=== PATIENT | female | born 1940 | race Caucasian/White ===

== ENCOUNTER → 2017-10-12 14:44 | Outpatient (CLI) | payer MEDICARE, OTHER, SELFPAY | PROVIDERS: Family Provider Family Medicine; PCP Family Medicine; Visit Provider Internal Medicine Pulmonary Disease | DX: I27.21 Secondary pulmonary arterial hypertension (principal) ==

== ENCOUNTER 2018-02-22 11:51 | Emergency (ER) | payer MEDICARE, OTHER, SELFPAY ==
[2018-02-22 12:25] VITALS: BP 98/47; PULSE 67; RESP 24; TEMP 36.9; O2SAT 92
--- NOTE | 2018-02-22 12:30 | PC.NURSE ---
pt used WC to get to restroom, that exertion dropped her sats to 68% on 4l. pt sat on side of bed to recover, pt o2 raised to 5l, pt then slowly come up to 92, pt remains on 5l.
--- NOTE | 2018-02-22 12:59 | ED_ITS ---
HPI - Extremity Problem <ALLY Dominguez - Last Filed: 02/22/18 22:24> General Chief complaint: Extremity Problem,Nontraumatic Stated complaint: Bilateral leg swelling Time Seen by Provider: 02/22/18 12:57 Source: patient Mode of arrival: ambulatory Limitations: no limitations History of Present Illness HPI Narrative: 77-year-old female with history of COPD and CHF here for complaint of cellulitis to bilateral lower extremities not improving. She was recently treated by primary care for cellulitis to her lower extremities and was placed on Augmentin. She has been on Augmentin for the past 3 days she states that the redness to her bilateral lower extremities are on the feet area has worsened over the past couple of days. She denies any fever. She does report having some discomfort to the area of the feet. She denies any trauma to the area. No chest pain. She denies any worsening shortness of breath other than her baseline. Positive p.o. intake. No nausea or vomiting. Related Data Home Medications Medication Instructions Recorded Confirmed albuterol sulfate [ProAir 1 puff INHALATION PRN PRN 02/22/18 02/22/18 RespiClick] ambrisentan [Letairis] 10 mg PO DAILY 02/22/18 02/22/18 amoxicillin-pot clavulanate 1 tab PO BIDX10 02/22/18 02/22/18 furosemide 80 mg PO DAILY 02/22/18 02/22/18 lovastatin 40 mg PO DAILY 02/22/18 02/22/18 mometasone-formoterol [Dulera] 1 puff INHALATION BID 02/22/18 02/22/18 omeprazole 40 mg PO DAILY 02/22/18 02/22/18 oxycodone 5 - 10 mg PO Q6H PRN MDD 3 tabs 02/22/18 02/22/18 oxycodone [OxyContin] 10 mg PO Q8H 02/22/18 02/22/18 potassium chloride 10 meq PO BID 02/22/18 02/22/18 sildenafil (antihypertensive) 20 mg PO TID 02/22/18 02/22/18 spironolactone 25 mg PO DAILY 02/22/18 02/22/18 tiotropium bromide [Spiriva 1 dose INHALATION DAILY 02/22/18 02/22/18 Respimat] trazodone 50 mg PO DAILY 02/22/18 02/22/18 triamcinolone acetonide 1 applic TOPICAL DIRECTED 02/22/18 02/22/18 Previous Rx's Medication Instructions Recorded clindamycin HCl 300 mg PO QID #28 cap 02/22/18 Review of Systems <ALLY Dominguez - Last Filed: 02/22/18 22:24> Constitutional Denies chills, Denies fever(s), Denies lethargy and Denies weakness Eyes Denies change in vision, Denies eye discharge, Denies irritation and Denies loss of vision ENT Ears, Nose, Mouth, and Throat: Denies change in voice, Denies neck pain and Denies sore throat Cardiovascular Denies chest pain, Denies irregular heart rhythm, Denies lightheadedness, Denies palpitations, Denies dyspnea, Denies dyspnea on exertion and Denies orthopnea Respiratory Denies cough, Denies dyspnea, Denies dyspnea on exertion and Denies wheezing Gastrointestinal Gastrointestinal: Denies abdominal pain, Denies change in bowel habits, Denies diarrhea, Denies nausea and Denies vomiting Genitourinary Denies hematuria, Denies flank pain, Denies urinary incontinence and Denies urinary urgency Musculoskeletal Denies neck pain Comments: Redness to her lower extremities Integumentary/Breasts Denies pruritus, Denies erythema, Denies rash and Denies wounds Neurologic Denies confusion, Denies loss of vision and Denies weakness Psychiatric Denies anxiety, Denies confusion, Denies depression, Denies homicidal ideation and Denies suicidal ideation Endocrine Denies palpitations Hematologic/Lymphatic Denies easy bruising Allergic/Immunologic Denies wheezing Exam <ALLY Dominguez - Last Filed: 02/22/18 22:24> Initial Vital Signs Initial Vital Signs: Vital Signs Temperature 98.5 F 02/22/18 12:25 Pulse Rate 67 02/22/18 12:25 Respiratory Rate 24 02/22/18 12:25 Blood Pressure 98/47 L 02/22/18 12:25 Pulse Oximetry 92 02/22/18 12:25 Const General: cooperative and well developed Nutritional Appearance: well nourished Orientation: alert, awake, oriented x3 and not confused HENMT Mouth: oral mucosae normal and moist mucous membranes Eyes Conjunctivae: conjunctivae normal Sclera: sclerae normal Pupils: PERRL EOM: EOM intact bilaterally Resp Effort & Inspection: normal respiratory effort, able to speak in complete sentences, no respiratory distress and no use of accessory muscles Auscultation: no rales, no rhonchi and wheezes Cardio Rate: regular rate Rhythm: regular rhythm Heart Sounds: no click, no gallops, no murmurs and no rubs GI Inspection: non-distended Palpation: soft, no hepatosplenomegaly, No guarding, No pulsatile mass and No tender Auscultation: normal bowel sounds Neuro General: alert, oriented x3, gait normal and no focal motor deficits Speech: speech normal Extrem Other: mild erythema to bilateral feet and radiating into her ankle area. Increased temperature on palpation. Distal sensation is intact. Distal range of motion is intact. Distal cap refill less than 2 sec. No calf swelling Homans sign negative, <Gayla Leal DO - Last Filed: 02/23/18 16:37> Initial Vital Signs Initial Vital Signs: Vital Signs Temperature 98.5 F 02/22/18 12:25 Pulse Rate 67 02/22/18 12:25 Respiratory Rate 24 02/22/18 12:25 Blood Pressure 98/47 L 02/22/18 12:25 Pulse Oximetry 92 02/22/18 12:25 Course <ALLY Dominguez - Last Filed: 02/22/18 22:24> Orders Ordered: ED Orders 02/22/18 13:35 Blood Culture Stat 02/22/18 13:37 B Type Natriuretic Peptide Stat Complete Blood Count AUTO DIFF Stat Comprehensive Metabolic Panel Stat Lactate (Lactic Acid) Stat Procalcitonin Stat Troponin & CK Cardiac Panel Stat Vital Signs - 8 hr 02/22/18 15:31 Pulse Rate 54 L Blood Pressure [Left Arm] 103/37 L Pulse Oximetry 91 <Gayla Leal DO - Last Filed: 02/23/18 16:37> Orders Ordered: ED Orders 02/22/18 13:35 Blood Culture Stat 02/22/18 13:37 B Type Natriuretic Peptide Stat Complete Blood Count AUTO DIFF Stat Comprehensive Metabolic Panel Stat Lactate (Lactic Acid) Stat Procalcitonin Stat Troponin & CK Cardiac Panel Stat Vital Signs - 8 hr 02/22/18 15:31 Pulse Rate 54 L Blood Pressure [Left Arm] 103/37 L Pulse Oximetry 91 MDM - Extremity (Nontraumatic) <ALLY Dominguez - Last Filed: 02/22/18 22:24> Lab Data Result diagrams: 02/22/18 13:37 02/22/18 13:37 Lab Results 02/22/18 02/22/18 02/22/18 Range/Units 13:37 13:37 13:37 WBC 5.2 (4.5-11.0) X10^3/uL RBC 4.24 (4.0-5.2) X10^6/uL Hgb 10.8 L (12.0-16.0) g/dL Hct 33.3 L (36-46) % MCV 78.5 L (80-100) fL MCH 25.6 L (26-34) PG MCHC 32.5 (30-36) % RDW 30.8 H (11.6-14.8) % Plt Count 181 (150-400) X10^3/uL Neut % (Auto) 70.5 (50-75) % Lymph % (Auto) 15.5 L (25-40) % [place] % (Auto) 11.3 (3-14) % Eos % (Auto) 2.1 (2-4) % Baso % (Auto) 0.6 (0-2) % Neut # (Auto) 3700 (1345-3327) /uL RBC Morphology See below Anisocytosis 3+ H Sodium 140 (137-145) mmol/L Potassium 4.1 (3.4-5.1) mmol/L Chloride 92 L (98-107) mmol/L Carbon Dioxide 35 H (22-32) mmol/L BUN 27 H (7-17) mg/dL Creatinine 1.20 H (0.52-1.04) mg/dL Estimated GFR 43.7 L (>60) mL/min BUN/Creatinine Ratio 22.5 H (6-22) Glucose 94 (80-110) mg/dL Lactate (0.7-2.1) mmol/L Calcium 9.1 (8.4-10.2) mg/dL Total Bilirubin 0.4 (0.2-1.3) mg/dL AST 34 (14-36) IU/L ALT 26 (9-52) IU/L Alkaline Phosphatase 54 (38-126) U/L Total Creatine Kinase 102 (30-135) U/L CK-MB (CK-2) 4.06 H (<2.37) ng/mL CK-MB (CK-2) Rel Index 4.0 (1.5-5.0) % Troponin I < 0.012 (0.01-0.034) ng/mL B-Natriuretic Peptide 107.0 H (<100) Total Protein 6.9 (6.3-8.2) g/dL Albumin 4.3 (3.5-5.0) g/dL Globulin 2.6 (1.7-4.1) g/dL Albumin/Globulin Ratio 1.7 (1.0-2.8) Procalcitonin < 0.05 (<0.5) ng/mL 02/22/18 Range/Units 13:37 WBC (4.5-11.0) X10^3/uL RBC (4.0-5.2) X10^6/uL Hgb (12.0-16.0) g/dL Hct (36-46) % MCV (80-100) fL MCH (26-34) PG MCHC (30-36) % RDW (11.6-14.8) % Plt Count (150-400) X10^3/uL Neut % (Auto) (50-75) % Lymph % (Auto) (25-40) % [place] % (Auto) (3-14) % Eos % (Auto) (2-4) % Baso % (Auto) (0-2) % Neut # (Auto) (4089-7024) /uL RBC Morphology Anisocytosis Sodium (137-145) mmol/L Potassium (3.4-5.1) mmol/L Chloride (98-107) mmol/L Carbon Dioxide (22-32) mmol/L BUN (7-17) mg/dL Creatinine (0.52-1.04) mg/dL Estimated GFR (>60) mL/min BUN/Creatinine Ratio (6-22) Glucose (80-110) mg/dL Lactate 0.9 (0.7-2.1) mmol/L Calcium (8.4-10.2) mg/dL Total Bilirubin (0.2-1.3) mg/dL AST (14-36) IU/L ALT (9-52) IU/L Alkaline Phosphatase (38-126) U/L Total Creatine Kinase (30-135) U/L CK-MB (CK-2) (<2.37) ng/mL CK-MB (CK-2) Rel Index (1.5-5.0) % Troponin I (0.01-0.034) ng/mL B-Natriuretic Peptide (<100) Total Protein (6.3-8.2) g/dL Albumin (3.5-5.0) g/dL Globulin (1.7-4.1) g/dL Albumin/Globulin Ratio (1.0-2.8) Procalcitonin (<0.5) ng/mL Urine Dip Bedside Urine Glucose Negative Bedside Urine Bilirubin - Negative Bedside Urine Ketone - Negative Urine Specific [place] 1.015 Bedside Urine Occult Blood - Negative Bedside Urine pH 6.0 Bedside Urine Protein - Negative Bedside Urine Urobilinogen - Negative Bedside Urine Nitrite - Negative Bedside Urine Leukocytes - Negative Esterase MDM Narrative Medical decision making narrative: CBC was obtained was negative for elevated white count. Procalcitonin and lactate were also negative. BNP was 107 today. Minor erythema to bilateral lower extremities. will change antibiotic from Augmentin to clindamycin. patient's vital signs are stable and no signs of systemic infection are seen. Will hold on IV antibiotics at this point. Discussed case with primary care provider Dr. Mullins Who agrees with plan. she will follow up with patient on Sunday. differential of redness and discomfort to the bilateral lower extremities secondary to the edema. Currently prescribed pain management regimen as needed for any discomfort. For any worsening symptoms return to the emergency room. <Gayla Leal, - Last Filed: 02/23/18 16:37> Lab Data Lab Results 02/22/18 02/22/18 02/22/18 Range/Units 13:37 13:37 13:37 WBC 5.2 (4.5-11.0) X10^3/uL RBC 4.24 (4.0-5.2) X10^6/uL Hgb 10.8 L (12.0-16.0) g/dL Hct 33.3 L (36-46) % MCV 78.5 L (80-100) fL MCH 25.6 L (26-34) PG MCHC 32.5 (30-36) % RDW 30.8 H (11.6-14.8) % Plt Count 181 (150-400) X10^3/uL Neut % (Auto) 70.5 (50-75) % Lymph % (Auto) 15.5 L (25-40) % [place] % (Auto) 11.3 (3-14) % Eos % (Auto) 2.1 (2-4) % Baso % (Auto) 0.6 (0-2) % Neut # (Auto) 3700 (7070-5588) /uL RBC Morphology See below Anisocytosis 3+ H Sodium 140 (137-145) mmol/L Potassium 4.1 (3.4-5.1) mmol/L Chloride 92 L (98-107) mmol/L Carbon Dioxide 35 H (22-32) mmol/L BUN 27 H (7-17) mg/dL Creatinine 1.20 H (0.52-1.04) mg/dL Estimated GFR 43.7 L (>60) mL/min BUN/Creatinine Ratio 22.5 H (6-22) Glucose 94 (80-110) mg/dL Lactate (0.7-2.1) mmol/L Calcium 9.1 (8.4-10.2) mg/dL Total Bilirubin 0.4 (0.2-1.3) mg/dL AST 34 (14-36) IU/L ALT 26 (9-52) IU/L Alkaline Phosphatase 54 (38-126) U/L Total Creatine Kinase 102 (30-135) U/L CK-MB (CK-2) 4.06 H (<2.37) ng/mL CK-MB (CK-2) Rel Index 4.0 (1.5-5.0) % Troponin I < 0.012 (0.01-0.034) ng/mL B-Natriuretic Peptide 107.0 H (<100) Total Protein 6.9 (6.3-8.2) g/dL Albumin 4.3 (3.5-5.0) g/dL Globulin 2.6 (1.7-4.1) g/dL Albumin/Globulin Ratio 1.7 (1.0-2.8) Procalcitonin < 0.05 (<0.5) ng/mL 02/22/18 Range/Units 13:37 WBC (4.5-11.0) X10^3/uL RBC (4.0-5.2) X10^6/uL Hgb (12.0-16.0) g/dL Hct (36-46) % MCV (80-100) fL MCH (26-34) PG MCHC (30-36) % RDW (11.6-14.8) % Plt Count (150-400) X10^3/uL Neut % (Auto) (50-75) % Lymph % (Auto) (25-40) % [place] % (Auto) (3-14) % Eos % (Auto) (2-4) % Baso % (Auto) (0-2) % Neut # (Auto) (3738-9567) /uL RBC Morphology Anisocytosis Sodium (137-145) mmol/L Potassium (3.4-5.1) mmol/L Chloride (98-107) mmol/L Carbon Dioxide (22-32) mmol/L BUN (7-17) mg/dL Creatinine (0.52-1.04) mg/dL Estimated GFR (>60) mL/min BUN/Creatinine Ratio (6-22) Glucose (80-110) mg/dL Lactate 0.9 (0.7-2.1) mmol/L Calcium (8.4-10.2) mg/dL Total Bilirubin (0.2-1.3) mg/dL AST (14-36) IU/L ALT (9-52) IU/L Alkaline Phosphatase (38-126) U/L Total Creatine Kinase (30-135) U/L CK-MB (CK-2) (<2.37) ng/mL CK-MB (CK-2) Rel Index (1.5-5.0) % Troponin I (0.01-0.034) ng/mL B-Natriuretic Peptide (<100) Total Protein (6.3-8.2) g/dL Albumin (3.5-5.0) g/dL Globulin (1.7-4.1) g/dL Albumin/Globulin Ratio (1.0-2.8) Procalcitonin (<0.5) ng/mL Urine Dip Bedside Urine Glucose Negative Bedside Urine Bilirubin - Negative Bedside Urine Ketone - Negative Urine Specific [place] 1.015 Bedside Urine Occult Blood - Negative Bedside Urine pH 6.0 Bedside Urine Protein - Negative Bedside Urine Urobilinogen - Negative Bedside Urine Nitrite - Negative Bedside Urine Leukocytes - Negative Esterase Discharge Plan Departure Patient Disposition: Home Clinical Impression: Cellulitis of both lower extremities Discharge Date/Time: 02/22/18 16:45 Interventions: ED Discharge Assessment Last Done: 02/22/18 17:53 Instructions: DI for Cellulitis -- Adult Activity Restrictions/Additional Instructions: antibiotics have been changed from Augmentin to clindamycin use as directed. Use currently prescribed pain management regimen as needed for any discomfort. Elevate lower extremities to help with edema. Follow up with Dr. Mullins on Sunday. for any worsening symptoms return to the emergency room. Prescriptions: New clindamycin HCl 300 mg capsule 300 mg PO QID Qty: 28 RF: 0 No Action potassium chloride 10 mEq capsule, extended release 10 meq PO BID RF: 0 trazodone 50 mg tablet 50 mg PO DAILY RF: 0 lovastatin 40 mg tablet 40 mg PO DAILY RF: 0 omeprazole 40 mg capsule,delayed release(DR/EC) 40 mg PO DAILY RF: 0 triamcinolone acetonide 0.1 % cream 1 applic Topical DIRECTED RF: 0 spironolactone 25 mg tablet 25 mg PO DAILY RF: 0 furosemide 80 mg tablet 80 mg PO DAILY RF: 0 amoxicillin-pot clavulanate 1,000-62.5 mg tablet extended release 12 hr 1 tab PO BIDX10 RF: 0 sildenafil (antihypertensive) 20 mg tablet 20 mg PO TID RF: 0 ambrisentan [Letairis] 10 mg tablet 10 mg PO DAILY RF: 0 oxycodone 10 mg tablet 5 - 10 mg PO Q6H MDD 3 tabs PRN (Reason: pain) RF: 0 mometasone-formoterol [Dulera] 100-5 mcg/actuation HFA aerosol inhaler 1 puff Inhalation BID RF: 0 tiotropium bromide [Spiriva Respimat] 2.5 mcg/actuation mist 1 dose Inhalation DAILY RF: 0 oxycodone [OxyContin] 10 mg tablet,oral only,ext.rel.12 hr 10 mg PO Q8H RF: 0 albuterol sulfate [ProAir RespiClick] 90 mcg/actuation aerosol powdr breath activated 1 puff Inhalation PRN PRN (Reason: Shortness Of Breath) RF: 0 Referrals: Onelia Mullins MD [Primary Care Provider] - <Gayla Leal DO - Last Filed: 02/23/18 16:37> Cosign ED Attending Cosignature Attestation: I was immediately available in the department for consultation. This documentation has been reviewed and I agree with assessment and plan. Supervised by Gayla Leal DO
[2018-02-22 13:00] VITALS: BP 104/48; PULSE 65; O2SAT 96
--- NOTE | 2018-02-22 13:12 | DI.RAD.S_ITS ---
PROCEDURE: XR CHEST 1V INDICATIONS: swelling to bilateral lower extremities history of CHF TECHNIQUE: One view of the chest was acquired. COMPARISON: None. FINDINGS: Surgical changes and devices: None. Lungs and pleura: No pleural effusions or pneumothorax. Lungs are abnormal with an interstitial prominence likely chronic. Mild pulmonary edema may be superimposed. Mediastinum: Mediastinal contours appear normal. Heart size is normal. Bones and chest wall: No suspicious bony lesions. Overlying soft tissues appear unremarkable. IMPRESSION: Comparison chest plain films are not available for review. The appearance of the chest indicates likelihood of a chronic interstitial prominence with possibility of superimposed mild pulmonary edema. However, the heart is not enlarged and pleural effusions are not seen. Linear scarring or calcification lateral left upper lobe noted. Dictated by: Juni Thomas M.D. on 02/22/2018 at 14:58 Approved by: Juni Thomas M.D. on 02/22/2018 at 14:59
[2018-02-22 13:59] LABS: Add Manual Diff / Slide Review NO; Basophils Percent Auto 0.6 % (0-2); Eosinophils Percent Auto 2.1 % (2-4); Hematocrit 33.3 % (36-46); Hemoglobin 10.8 g/dL (12.0-16.0); Lymphocytes Percent Auto 15.5 % (25-40); Mean Corpuscular HGB Conc 32.5 % (30-36); Mean Corpuscular Hemoglobin 25.6 PG (26-34); Mean Corpuscular Volume 78.5 fL (80-100); Monocytes Percent Auto 11.3 % (3-14); Neutrophils Absolute Auto 3700 /uL (3000-5900); Neutrophils Percent Auto 70.5 % (50-75); Platelet Count 181 X10^3/uL (150-400); Red Blood Cell Count 4.24 X10^6/uL (4.0-5.2); Red Cell Distribution Width 30.8 % (11.6-14.8); White Blood Cell Count 5.2 X10^3/uL (4.5-11.0)
[2018-02-22 14:00] VITALS: BP 110/40; PULSE 64; O2SAT 99
[2018-02-22 14:15] LABS: Lactate (Lactic Acid) 0.9 mmol/L (0.7-2.1)
[2018-02-22 14:16] LABS: Alanine Aminotransferase 26 IU/L (9-52); Albumin 4.3 g/dL (3.5-5.0); Albumin Globulin Ratio 1.7 (1.0-2.8); Alkaline Phosphatase 54 U/L (38-126); Aspartate Aminotransferase 34 IU/L (14-36); BUN Creatinine Ratio 22.5 (6-22); Bilirubin Total 0.4 mg/dL (0.2-1.3); Blood Urea Nitrogen 27 mg/dL (7-17); Calcium 9.1 mg/dL (8.4-10.2); Carbon Dioxide 35 mmol/L (22-32); Chloride 92 mmol/L (98-107); Creatine Kinase 102 U/L (30-135); Estimated Glomerular Filt Rate 43.7 mL/min (>60); Globulin 2.6 g/dL (1.7-4.1); Glucose 94 mg/dL (80-110); HEMOLYSIS < 15 (0-50); Potassium 4.1 mmol/L (3.4-5.1); Sodium 140 mmol/L (137-145); Total Protein 6.9 g/dL (6.3-8.2)
[2018-02-22 14:22] LABS: Anisocytosis 3+
[2018-02-22 14:29] LABS: Troponin I < 0.012 ng/mL (0.01-0.034)
[2018-02-22 14:30] LABS: Procalcitonin < 0.05 ng/mL (<0.5)
[2018-02-22 14:32] LABS: Creatine Kinase MB 4.06 ng/mL (<2.37)
[2018-02-22 15:31] VITALS: BP 103/37; PULSE 54; O2SAT 91
--- NOTE | 2018-02-22 17:37 | PC.NURSE ---
I assisted the patient to the front where their ride would pick them up. Helped patient get up into the truck, and I visually made sure the patients O2 tank was set to 4L as patient said they are normally on 4L. Patient was thankful to head home.
== END 2018-02-22 16:45 | disposition home or self-care (01) ==
PROVIDERS: Emergency Provider Nurse Practitioner Family; PCP Family Medicine
DX: L03.116 Cellulitis of left lower limb (principal)
CPT/HCPCS: 36415; 36591; 71045; 80053; 81003; 82550; 82553; 83605; 83880; 84145; 84484; 85025; 87040; 99283; 99284

== ENCOUNTER → 2019-08-30 10:20 | Outpatient (CLI) | payer MEDICARE, OTHER, SELFPAY ==
--- NOTE | 2019-08-30 | DI.MRI.S_ITS ---
PROCEDURE: MR LUMBAR SPINE WO CON INDICATIONS: LUMBAGO WITH SCIATICA TECHNIQUE: Noncontrast sagittal T1 spin echo and T2 fast echo, coronal T2, sagittal STIR, axial T1 and T2 fast spin echo through the lumbar spine. COMPARISON: [facility], , L-SPINE WITHOUT CONTRAST, 09/22/2010, 17:29. FINDINGS: Image quality: Excellent. Alignment and Curvature: No plain films are available for comparison, for numbering purposes. Thus, for the purposes of this examination, 5 lumbar type vertebral bodies will be presumed, as denoted on the montage panel. This should be confirmed and correlated with plain films, prior to any lumbar spinal intervention. There is severe leftward curvature of the mid lumbar spine. Mild grade 1 retrolisthesis of L1 on L2, L2 on L3, and L5 on S1. Mild grade 1 anterolisthesis of L3 on L4 and L4 on L5. Bone Marrow: Marrow is of normal overall signal. No acute vertebral body compression fractures. There is mild reactive signal within the endplates adjacent to the T10-T11, T11-T12, T12-L1, L1-L2, L2-L3, L3-L4, L4-L5, and L5-S1 intervertebral discs. Spinal Cord: Conus medullaris terminates at the upper L2 level. Visualized cord demonstrates normal signal and size. Paraspinous Soft Tissues: No paravertebral masses. L1-L2: Moderate disc height loss and desiccation. Mild diffuse disc bulge. Mild facet and ligament flavum hypertrophy. Increased, mild canal stenosis. Increased, mild bilateral foraminal stenosis. L2-L3: Moderate disc height loss and desiccation. Moderate diffuse disc bulge. Mild facet and ligamentum hypertrophy. Mild epidural lipomatosis. Increased, mild canal stenosis. Increased, mild right greater than left foraminal stenosis. L3-L4: Severe disc height loss and desiccation. Mild diffuse disc bulge. Moderate facet hypertrophy. Mild ligamentum flavum hypertrophy. Mild epidural lipomatosis. Increased, mild canal stenosis. Increased, bilateral foraminal stenosis. L4-L5: Moderate disc height loss and desiccation. Mild diffuse disc bulge. Moderate facet hypertrophy bilaterally. Increased, mild canal stenosis. Increased mild bilateral foraminal stenosis. L5-S1: Moderate disc height loss and desiccation. Mild diffuse disc bulge. Moderate facet hypertrophy bilaterally. Increased, mild canal stenosis. Increased, mild left greater than right foraminal stenosis. IMPRESSION: 1. Multilevel degenerative disc and facet disease, as well as ligamentum flavum hypertrophy and epidural lipomatosis. 2. 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 Multilevel degenerative spondylolistheses. 3. Mild multilevel canal and foraminal stenoses. 4. 5 lumbar type vertebral bodies were presumed for the current report. Plain films of the lumbar spine are recommended for confirmation, prior to any lumbar spinal intervention. Dictated by: Mahsa Leonard M.D. on 09/01/2019 at 8:20 Approved by: Mahsa Leonard M.D. on 09/01/2019 at 8:29
== END ==
PROVIDERS: PCP Family Medicine; Referring Provider Orthopaedic Surgery; Visit Provider Orthopaedic Surgery
DX: M51.16 Intervertebral disc disorders with radiculopathy, lumbar region (principal); M51.17 Intervertebral disc disorders with radiculopathy, lumbosacral region; M47.26 Other spondylosis with radiculopathy, lumbar region; M47.27 Other spondylosis with radiculopathy, lumbosacral region; M48.07 Spinal stenosis, lumbosacral region; M48.061 Spinal stenosis, lumbar region without neurogenic claudication; E88.2 Lipomatosis, not elsewhere classified
CPT/HCPCS: 72148

== ENCOUNTER → 2020-07-23 11:42 | Outpatient (CLI) | payer MEDICARE, OTHER, SELFPAY ==
--- NOTE | 2020-07-23 | DI.CT.S_ITS ---
PROCEDURE: CT SINUS SCREEN WO CON INDICATIONS: other specified disorders of nose TECHNIQUE: Noncontrast 3.0 mm axial images acquired from the frontal sinuses to the mid-sella, with coronal and sagittal reformats. For radiation dose reduction, the following was used: automated exposure control, adjustment of mA and/or kV according to patient size. COMPARISON: None. FINDINGS: Image quality: Excellent. Maxillary Sinuses: No bony remodeling or destruction. Sinuses are clear. Ethmoid Air Cells: No bony remodeling or destruction. Sinuses are clear. Sphenoid Sinuses: No bony remodeling or destruction. Sinuses are clear. Frontal Sinuses: No bony remodeling or destruction. Sinuses are clear. Ostiomeatal Complexes: Ostiomeatal complexes are patent. No Kennedy cells. Miscellaneous: Visualized intra-orbital contents are normal. No merna bullosa or paradoxical turbinate curvature. There is mild to moderate rightward nasal septal deviation. There are remote nasal bone fractures seen. Dental implants are noted. IMPRESSION: No significant active paranasal sinus disease is seen. Mild to moderate rightward nasal septal deviation. Remote nasal bone fractures are seen. Incidental note is made of: Dental implants Dictated by: Harsh Beaulieu M.D. on 07/23/2020 at 11:37 Approved by: Harsh Beaulieu M.D. on 07/23/2020 at 11:38
== END ==
PROVIDERS: PCP Family Medicine; Referring Provider Otolaryngology; Visit Provider Otolaryngology
DX: J32.4 Chronic pansinusitis (principal); J34.89 Other specified disorders of nose and nasal sinuses; J34.2 Deviated nasal septum; R51.9 Headache, unspecified; Z87.81 Personal history of (healed) traumatic fracture
CPT/HCPCS: 70486